=== PATIENT | male | born 1970 | race Caucasian/White ===

== ENCOUNTER 2017-09-06 17:34 | Emergency (ER) | payer MEDICARE ==
[~2017-09-06] VITALS: Ht 172.7 cm; Wt 104.5 kg
[~2017-09-06 17:34] MED LIST: ELVITAB
[2017-09-06 18:06] VITALS: BP 129/87; PULSE 66; RESP 18; TEMP 98; O2SAT 98
--- NOTE | 2017-09-06 19:33 | PD ---
HPI Chief Complaint: Skin Problem Time Seen by Provider: 19:32 Travel History International Travel<30 days: No Contact w/Intl Traveler<30days: No Traveled to known affect area: No History of Present Illness HPI 47-year-old male presents to the emergency department with complaint of pain and swelling to the distal aspect of his left index finger since Tuesday. Thinks he maybe got bit by an insect. Has not taken any medications to alleviate his symptoms. Has tried squeezing it to drain the area. Denies fever , vomiting. Denies paresthesias, loss of sensation, decreased range of motion to the affected finger. Rates pain 8/10. Describes as throbbing. Primary care provider is Dr. Yovani Bateman. Denies significant past medical history. No known allergies. Has no other medical complaints. No other modifying factors or associated signs and symptoms. [facility] Social History Tobacco Use: No Allergies-Medications (Allergen,Severity, Reaction): Coded Allergies: No Known Allergies (Unverified Adverse Reaction, Unknown, 09/06/17) Reported Meds & Prescriptions Reported Meds & Active Scripts Active Reported [Hiv] Stribild (Ziflqhfqlyyw-Ppxjywyafk-Ifofvr) Unknown Strength Tab Unknown Dose Review of Systems Except as stated in HPI: all other systems reviewed are Neg Physical Exam Narrative GENERAL: Well-nourished, well-developed male patient, in no acute distress; afebrile, nontoxic-appearing SKIN: There is an indurated area to the palmar aspect of the left distal index finger which measures about 1.5 cm in diameter. It is fluctuant but there is no pointing or drainage. There is a zone of inflammation around it but no lymphangitis. Finger with full range of motion and sensory intact HEAD: Atraumatic. Normocephalic. EYES: Pupils equal and round. No scleral icterus. No injection or drainage. ENT: Mucosa pink and moist. Airway patent. NECK: Trachea midline. CARDIOVASCULAR: Regular rate. RESPIRATORY: No accessory muscle use. GASTROINTESTINAL: Flat. MUSCULOSKELETAL: No obvious deformities. No clubbing. No cyanosis. No edema. NEUROLOGICAL: Awake and alert. Oriented 3. No obvious cranial nerve deficits. Motor grossly within normal limits. Normal speech. PSYCHIATRIC: Appropriate mood and affect; insight and judgment normal. Data Data Last Documented VS Vital Signs Date Time Temp Pulse Resp B/P (MAP) Pulse Ox O2 Delivery O2 Flow Rate FiO2 09/06/17 18:06 98.0 66 18 129/87 (101) 98 Orders Orders Wound Culture And Gram Stain (09/06/17 19:49) Lidocaine 1% Inj (50 Ml) (Xylocaine 1% I (09/06/17 20:00) Sulfamet-Trimeth Ds 800-160 Mg (Bactrim (09/06/17 20:30) Ibuprofen (Motrin) (09/06/17 20:30) MDM Medical Decision Making Medical Screen Exam Complete: Yes Emergency Medical Condition: Yes Medical Record Reviewed: Yes Differential Diagnosis Abscess, arcadio, paronychia Narrative Course 47-year-old male with an abscess of his left index finger. See my procedure note for incision and drainage. Wound culture pending. Ibuprofen, Bactrim administered in the ER. Ibuprofen, Bactrim, tramadol prescribed for home. Instructed patient to return to the emergency department in 48 hours for packing removal and abscess recheck. Instructed patient to follow up with primary care provider. Patient verbalizes understanding and agreement with treatment plan. Patient is medically cleared and stable for discharge. Discussed reasons to return to the emergency department. Patient agrees with treatment plan. The patients vital signs are stable and the patient is stable for outpatient follow-up and treatment. Patient discharged home, stable and in no acute distress. Procedures Procedure Narrative INCISION AND DRAINAGE OF ABSCESS: The area was prepped and was sterilely draped. The finger was digitally blocked with 1% lidocaine. A number 11 scalpel was used to make a 0.5 -cm incision across the area of the abscess. The abscess was drained, complex loculations were broken down, and irrigated with normal saline. Cultures were obtained. Quarter inch iodoform packing was placed in the wound. Sterile dressing applied. Patient advised to have packing removed in two days. Diagnosis Primary Impression: Abscess of finger of left hand Referrals: [facility] PO Primary Care Physician Patient Instructions: Abscess (ED), Abscess Follow-up (ED), Abscess Incision and Drainage (DC), General Instructions Additional Instructions: Complete full course of antibiotics Warm compresses to the affected area Keep area clean and dry Ibuprofen or Tylenol as directed and as needed for pain and inflammation Follow-up with primary care provider Return to emergency department immediately with worsening of symptoms Med/Other Pt SpecificInfo: Prescription(s) given Scripts Tramadol (Tramadol) 50 Mg Tab 50 MG PO Q4H Y for PAIN, #8 TAB 0 Refills Prov: Gale Townsend 09/06/17 Ibuprofen (Ibuprofen) 800 Mg Tab 800 MG PO Q6HR Y for PAIN, #30 TAB 0 Refills Prov: Gale Townsend 09/06/17 Sulfamethoxazole-Trimethoprim (Bactrim DS) 800-160 Mg Tab 1 TAB PO BID for Infection for 10 Days, #20 TAB 0 Refills Prov: Gale Townsend 09/06/17 Disposition: 01 DISCHARGE HOME Condition: Stable Gale Townsend Sep 06, 2017 19:33
[2017-09-06] MEDS ORDERED: HIV (19:43)
[2017-09-06] MEDS ORDERED: LIDOCAINE HCL 1% 50 ML VIAL INFIL ONE (20:00)
[2017-09-06] MEDS ORDERED: BACT800T5 PO (20:21)
[2017-09-06] MEDS ORDERED: TRAM50TA PO (20:21)
[2017-09-06] MEDS ORDERED: IBUP1TAB7 PO (20:21)
[2017-09-06] MEDS ORDERED: SULFAMETHOXAZOLE-TRIMETHOPRIM DS 800-160 MG TAB PO ONE (20:30)
[2017-09-06] MEDS ORDERED: IBUPROFEN 800 MG TAB PO ONE (20:30)
== END 2017-09-06 20:49 | disposition home or self-care (01) ==
LOC: NEPK 17:34
DX: L02.512 Cutaneous abscess of left hand (principal); B95.62 Methicillin resistant Staphylococcus aureus infection as the cause of diseases classified elsewhere; Z16.19 Resistance to other specified beta lactam antibiotics; Z16.11 Resistance to penicillins; Z16.23 Resistance to quinolones and fluoroquinolones
CPT/HCPCS: 10061; 86403; 87070; 87186; 87205